=== PATIENT | female | born 1960 | race Caucasian/White ===

== ENCOUNTER 2018-10-08 13:03 | Emergency (ER) | payer MEDICAID ==
[~2018-10-08] VITALS: Ht 162.6 cm; Wt 79.5 kg
[2018-10-08] MEDS ORDERED: BACDS (13:17)
[2018-10-08] MEDS ORDERED: IODI1GRA (13:17)
[2018-10-08] MEDS ORDERED: propofol 10mg/ml 20ml vial IV ONE (14:20)
[2018-10-08 15:08] VITALS: BP 117/67
--- NOTE | 2018-10-08 15:12 | NUR ---
Dr Hernandez has ordered a abductor pillow to be fitted to the patient prior to her discharge.
== END 2018-10-08 16:28 | disposition home or self-care (01) ==
LOC: ER 13:04
DX: S73.005A Unspecified dislocation of left hip, initial encounter (principal); F12.90 Cannabis use, unspecified, uncomplicated; Z79.899 Other long term (current) drug therapy; Z90.89 Acquired absence of other organs; X58.XXXA Exposure to other specified factors, initial encounter; Y93.89 Activity, other specified; Y92.89 Other specified places as the place of occurrence of the external cause; Y99.8 Other external cause status
CPT/HCPCS: 27250; 73501; 99152; 99285; J2704; 94760

== ENCOUNTER 2022-07-02 10:43 | Emergency (ER) | payer MEDICAID ==
[~2022-07-02] VITALS: Ht 162.6 cm; Wt 60.5 kg
[~2022-07-02 10:43] MED LIST: BACDS; IODI1GRA
[2022-07-02 12:18] LABS: ALANINE AMINOTRANSFERASE 15 U/L (12-78); ALBUMIN 2.9 G/DL (3.4-5.0); ALBUMIN/GLOBULIN RATIO 0.6 (1.1-1.5); ALKALINE PHOSPHATASE 90 IU/L (46-116); ANION GAP 10 (8-16); ASPARTATE AMINO TRANSFERASE 19 U/L (10-37); BLOOD UREA NITROGEN 26 MG/DL (7-18); BUN/CREATININE RATIO 35.6 (6.6-38.0); CALCIUM 9.5 MG/DL (8.5-10.1); CHLORIDE 99 MMOL/L (99-107); CREATININE 0.73 MG/DL (0.40-0.90); GLUCOSE 89 MG/DL (70-104); POTASSIUM 3.2 MMOL/L (3.5-5.1); SODIUM 132 MMOL/L (135-145); TOTAL CARBON DIOXIDE 23.3 MMOL/L (24-32); TOTAL PROTEIN 7.5 G/DL (6.4-8.2); eGFR 81 ML/MIN
[2022-07-02] MEDS ORDERED: ondansetron/PF 4mg/2ml inj IV ONE (13:00)
[2022-07-02] MEDS ORDERED: normal saline 1000ml 1,000 ML IV ONE (13:00)
[2022-07-02] MEDS ORDERED: POTASSIUM BICARB 20meq eff tab 20 MEQ TABLET.EFF PO STA (13:00)
--- NOTE | 2022-07-02 13:04 | NUR ---
blood sugar 92 mg/dl
[2022-07-02 13:14] LABS: HEMATOCRIT 35.4 % (35.0-45.0); HEMOGLOBIN 11.7 g/dl (12.0-16.0); MEAN CORPUSCULAR HGB CONC 32.9 g/dL (33.0-36.5); MEAN CORPUSCULAR VOLUME 91.1 FL (78-98); MEAN PLATELET VOLUME 9.5 FL (7.4-10.4); PLATELET COUNT 73 X10'3 (140-440); RED BLOOD COUNT 3.89 X10'6 (4.20-5.60); RED CELL DISTRIBUTION WIDTH 30.1 % (11.5-14.5)
[2022-07-02 13:39] LABS: NUCLEATED RED BLOOD CELLS 7 /100WBC (0-0); TOTAL CELLS COUNTED 100
[2022-07-02 13:40] LABS: ANISOCYTOSIS 3+; LARGE PLATELETS FEW; PLATELET ESTIMATE DECREASED
[2022-07-02 13:41] LABS: ACANTHOCYTES 1+; ELLIPTOCYTES 1+; SCHISTOCYTES FEW
[2022-07-02 13:42] LABS: BURR CELLS FEW
[2022-07-02] MEDS ORDERED: ONDA4TAB12 PO (13:58)
[2022-07-02] MEDS ORDERED: acetaminophen 325mg tablet PO ONE (14:10)
[2022-07-02 15:34] LABS: CLARITY,URINE CLOUDY (Clear); COLOR,URINE YELLOW (Yellow); GLUCOSE, URINE NEGATIVE (Neg); KETONES,URINE 15 mg/dl (Neg); LEUKOCYTE ESTERASE ,URINE NEGATIVE (Neg); NITRITES, URINE NEGATIVE (Neg); OCCULT BLOOD,URINE TRACE-INTACT (Neg); PROTEIN,URINE 100 mg/dl (Neg)
[2022-07-02 16:05] LABS: UA COLLECTION TYPE OTHER
[2022-07-02 16:08] LABS: SQUAMOUS EPITHELIAL CELL,UR MANY /LPF (FEW)
[2022-07-02 16:09] LABS: BACTERIA,URINE 2+ /HPF (Neg); RBC,URINE 0-2 /HPF (0-2)
[2022-07-02 16:10] LABS: TRANSITIONAL EPI CELLS,URINE FEW /HPF
[2022-07-02 17:10] VITALS: BP 91/65
== END 2022-07-02 17:23 | disposition home or self-care (01) ==
LOC: ER 10:44
DX: B34.9 Viral infection, unspecified (principal); Z20.822 Contact with and (suspected) exposure to COVID-19; E86.0 Dehydration; E87.6 Hypokalemia; J44.9 Chronic obstructive pulmonary disease, unspecified; F32.9 Major depressive disorder, single episode, unspecified; F12.90 Cannabis use, unspecified, uncomplicated; Z98.890 Other specified postprocedural states; Z91.041 Radiographic dye allergy status; Z88.2 Allergy status to sulfonamides; Z79.899 Other long term (current) drug therapy
CPT/HCPCS: 36415; 71045; 80053; 81001; 82948; 84484; 85007; 85025; 87502; 87503; 87635; 93005; 96361; 96374; 99285; C9803; J2405; J7030